=== PATIENT | male | born 1975 | race Caucasian/White ===

== ENCOUNTER 2017-12-02 07:17 | Emergency (ER) | payer BC ==
[2017-12-02 07:45] VITALS: BP 158/104
--- NOTE | 2017-12-02 09:37 | Emergency Department Report ---
Fela Doc - Documentation Documentation: Patient is a 42-year-old gentleman who is presenting with 1 year of right arm numbness. Patient states that he went to see a doctor several days ago and blood pressure was slightly elevated at that time was told to come to the emergency department for follow-up. Patient states that he does crack his neck quite a bit by habit. Patient states the symptoms sensation in the right arm only. Again this is been present for approximately 1 year. Patient does feels soreness in his neck. Patient denies any chest pain shortness of breath cough cold congestion at this time. [facility] to [facility] for x-ray of the C-spine to rule out arthritic changes that may explain this condition. Patient also had repeat blood pressures well
--- NOTE | 2017-12-02 09:56 | XRay Report ---
AP AND LATERAL CERVICAL SPINE: History: Numbness in right arm. The vertebral bodies are well mineralized and normal in alignment and vertebral height with well preserved interspace distances. The visualized portions of the posterior elements are normal. IMPRESSION: Normal study.
--- NOTE | 2017-12-02 10:53 | Emergency Department Report ---
ED General Adult HPI - General Chief complaint: Neuro Symptoms/Deficit Stated complaint: RIGHT SIDE BODY NUMBNESS Time Seen by Provider: 12/02/17 09:29 Source: patient Mode of arrival: Ambulatory Limitations: No Limitations - History of Present Illness Initial comments: Patient is a 42-year-old gentleman who is presenting with 1 year of right arm numbness. Patient states that he went to see a doctor several days ago and blood pressure was slightly elevated at that time was told to come to the emergency department for follow-up. Patient states that he does crack his neck quite a bit by habit. Patient states the symptoms sensation in the right arm only. Again this is been present for approximately 1 year. Patient does feels soreness in his neck. Patient denies any chest pain shortness of breath cough cold congestion at this time. [facility] the C-spine to rule out arthritic changes that may explain this condition. Patient also had repeat blood pressures well Onset/Timin -: year(s) Location: neck, right, upper extremity Radiation: extremity Severity scale (0 -10): 3 Quality: other (tingling ) Consistency: intermittent Improves with: rest Worsens with: movement Associated Symptoms: denies: fever/chills, headaches, loss of appetite, nausea/ vomiting, seizure, syncope, weakness Treatments Prior to Arrival: none - Related Data Previous Rx's Medication Instructions Recorded Last Taken Type Naproxen [Naprosyn] 500 mg PO BID PRN #30 tablet 12/02/17 Unknown Rx ED Review of Systems ROS: Stated complaint: RIGHT SIDE BODY NUMBNESS Other details as noted in HPI Constitutional: denies: chills, fever Eyes: denies: eye pain, eye discharge, vision change ENT: denies: ear pain, throat pain Respiratory: denies: cough, shortness of breath, wheezing Cardiovascular: denies: chest pain, palpitations Endocrine: no symptoms reported Gastrointestinal: denies: abdominal pain, nausea, diarrhea Genitourinary: denies: urgency, dysuria Musculoskeletal: myalgia (right arm ). denies: back pain, joint swelling, arthralgia Skin: denies: rash, lesions Neurological: denies: headache, weakness, numbness, paresthesias, confusion, abnormal gait, vertigo Psychiatric: denies: anxiety, depression Hematological/Lymphatic: denies: easy bleeding, easy bruising ED Past Medical Hx - Past Medical History Additional medical history: high cholesterol - Surgical History Past Surgical History?: No - Social History Smoking Status: Never Smoker Substance Use Type: Alcohol - Medications Home Medications: Home Medications Medication Instructions Recorded Confirmed Last Taken Type Naproxen [Naprosyn] 500 mg PO BID PRN #30 tablet 12/02/17 Unknown Rx ED Physical Exam - General Limitations: No Limitations General appearance: alert, in no apparent distress - Head Head exam: Present: atraumatic, normocephalic, normal inspection - Eye Eye exam: Present: normal appearance, PERRL, EOMI Pupils: Present: normal accommodation - ENT ENT exam: Present: normal exam, normal orophraynx, mucous membranes moist, TM's normal bilaterally, normal external ear exam - Neck Neck exam: Present: normal inspection, full ROM. Absent: tenderness, meningismus, lymphadenopathy, thyromegaly - Expanded Neck Exam Expanded Neck exam: Present: other (there is no posterior vertebral point tenderness no paraspinous muscle tenderness range of motion intact including chin to chest bilateral shoulders and full neck extension without restriction). Absent: tenderness, midline deformity, anterior neck swelling, thyroid mass, carotid bruit, tracheal deviation - Respiratory Respiratory exam: Present: normal lung sounds bilaterally. Absent: respiratory distress - Cardiovascular Cardiovascular Exam: Present: regular rate, normal rhythm. Absent: systolic murmur, diastolic murmur, rubs, gallop - GI/Abdominal GI/Abdominal exam: Present: soft, normal bowel sounds - Rectal Rectal exam: Present: deferred (INR of the lower) - Extremities Exam Extremities exam: Present: normal inspection (they were given), full ROM, tenderness, normal capillary refill. Absent: pedal edema, joint swelling - Expanded Upper Extremity Exam Right Shoulder Exam: Present: normal inspection, full ROM. Absent: tenderness Upper Arm exam: Present: normal inspection, full ROM. Absent: tenderness Elbow exam: Present: normal inspection, full ROM. Absent: tenderness (was make a by mouth IV resulted in V Aldrich to something with worksHaldol IM Benadryl Haldol and Ativan syringes so.) Forearm Wrist exam: Present: normal inspection, full ROM. Absent: tenderness Hand Wrist exam: Present: normal inspection, full ROM. Absent: tenderness Neuro motor exam: Present: wrist extension intact (assessment and way worse), thumb opposition intact, thumb IP flexion intact ( by pharmacy L or), thumb adduction intact, fingers 2-5 abduction intact Neurosensory exam: Present: 2-point discrimination. Absent: radial nerve intact , ulnar nerve intact, median nerve intact Vascular: Present: normal capillary refill, radial pulse, brachial pulse ([place]) , ulnar pulse (procedures). Absent: vascular compromise, pulse deficit radial art, pulse deficit ulnar art, pulse deficit brachial art - Back Exam Back exam: Present: normal inspection. Absent: CVA tenderness (R), CVA tenderness (L) (illnesses this is a emergency department so the [facility] you have to go through outpatient but I can't have his personal phone call Hospital) - Neurological Exam Neurological exam: Present: alert, oriented X3, CN II-XII intact, normal gait ( menorrhagia), reflexes normal. Absent: motor sensory deficit - Expanded Neurological Exam Expanded Patient oriented to: Present: person, place, time Speech: Present: fluid speech Cranial nerves: EOM's Intact: Normal, Gag Reflex: Normal, Tongue Deviation: Normal, Nystagmus: Normal, Facial Sensation: Normal Cerebellar function: Finger to Nose: Normal, Heel to Ray: Normal, Romberg: Normal Upper motor neuron: Heath Neglect: Normal, Pronator Drift: Normal, Babinski Sign : Normal, Sensory Extinction: Normal Sensory exam: Upper Extremity Light Touch: Normal, Upper Extremity Pin Prick: Normal, Upper Extremity Temperature: Normal, UE 2 Point Discrimination: Normal, Lower Extremity Light Touch: Normal, Lower Extremity Pin Prick: Normal, Lower Extremity Temperature: Normal, LE 2 Point Discrimination: Normal Motor strength exam: RUE: 5, LUE: 5, RLE: 5, LLE: 5 DTR: bicep (R): 2+, bicep (L): 2+, tricep (R): 2+, tricep (L): 2+, knee (R): 2+ , knee (L): 2+, ankle (R): 2+, ankle (L): 2+ Best Eye Response (Jillian): (4) open spontaneously Best Motor Response (Jillian): (6) obeys commands Best Verbal Response ([place]): (5) oriented Jillian Total: 15 - Psychiatric Psychiatric exam: Present: normal affect - Skin Skin exam: Present: warm, dry, intact, normal color. Absent: rash ED Course Vital Signs 06/12/18 07:38 Temperature 98.4 F Pulse Rate 66 Respiratory 18 Rate Blood Pressure 158/104 O2 Sat by Pulse 99 Oximetry ED Medical Decision Making - Radiology Data Radiology results: report reviewed, image reviewed normal exam - Medical Decision Making This is likely radicular pain as range of motion is intact 55 there is no numbness no tingling or paralysis metacarpal tunnel pain no neck pain exam is unremarkable plan NSAIDs followed PCP in 2-3 days Critical care attestation.: If time is entered above; I have spent that time in minutes in the direct care of this critically ill patient, excluding procedure time. ED Disposition Clinical Impression: Chronic pain of left upper extremity, Radicular neuropathy Disposition: - TO HOME OR SELFCARE Is pt being admited?: No Does the pt Need Aspirin: No Condition: Good Instructions: Cervical Radiculopathy (ED), Arthralgia (ED) Prescriptions: Naproxen [Naprosyn] 500 mg PO BID PRN #30 tablet PRN Reason: Pain Referrals: JAZMIN BUCKLEY MD [Primary Care Provider] - 3-5 Days Forms: Work/School Release Form(ED) Time of Disposition: 11:05
== END 2017-12-02 11:25 | disposition home or self-care (01) ==
LOC: ED 07:17
DX: M54.10 Radiculopathy, site unspecified (principal); G89.29 Other chronic pain; M79.622 Pain in left upper arm; E78.00 Pure hypercholesterolemia, unspecified
CPT/HCPCS: 72040; 93005; 93010; 99283